=== PATIENT | male | born 1980 | race Caucasian/White ===

== ENCOUNTER 2016-06-19 13:09 | Inpatient (IN) | payer OTHER ==
[2016-06-19 15:43] VITALS: BMI 21.6
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
[2016-06-19] MEDS ORDERED: MENTHOL/PHENOL 1 EACH UD MM PRN (19:29)
[2016-06-19] MEDS ORDERED: chlordiazePOXIDE HCL 25 MG CAPSULE PO PRN (19:29)
[2016-06-19] MEDS ORDERED: diphenhydrAMINE HCL 50 MG CAPSULE PO PRN (19:29)
[2016-06-19] MEDS ORDERED: guaiFENesin/D-METHORPHAN HB 10 ML UNIT-DOSE CUPS PO PRN (19:29)
[2016-06-19] MEDS ORDERED: NICOTINE POLACRILEX 2 MG GUM BC PRN (19:29)
[2016-06-19] MEDS ORDERED: hydrOXYzine PAMOATE 50 MG CAPSULE (FP) PO PRN (19:29)
[2016-06-19] MEDS ORDERED: MAG HYDROX/AL HYDROX/SIMETH 30 ML UNIT-DOSE CUP PO PRN (19:29)
[2016-06-19] MEDS ORDERED: LOPERAMIDE HCL 2 MG CAPSULE PO PRN (19:29)
[2016-06-19] MEDS ORDERED: P-EPHED 60MG/TRIPROLIDI 2.5MG TABLET PO PRN (19:29)
[2016-06-19] MEDS ORDERED: ACETAMINOPHEN 325 MG TABLET (FP) PO PRN (19:29)
[2016-06-19] MEDS ORDERED: MAGNESIUM HYDROX 2400MG/30ML ORAL SUSPENSION 30 ML CUP PO PRN (19:29)
[2016-06-19] MEDS ORDERED: IBUPROFEN 400 MG TABLET (FP) PO PRN (19:29)
[2016-06-19] MEDS ORDERED: MAGNESIUM CITRATE 300 ML BOTTLE PO PRN (19:29)
[2016-06-19] MEDS: THIAMINE HCL 100 MG TABLET (FP) PO SCH (22:24)
[2016-06-19] MEDS: chlordiazePOXIDE HCL 25 MG CAPSULE PO SCH (22:24)
[2016-06-19 22:44] LABS: URINE APPEARANCE CLEAR; URINE BLOOD NEGATIVE (NEGATIVE); URINE COLOR AMBER; URINE GLUCOSE (UA) NEGATIVE (NEGATIVE); URINE KETONE NEGATIVE (NEGATIVE); URINE LEUK ESTERASE NEGATIVE (NEGATIVE); URINE NITRITE NEGATIVE (NEGATIVE); URINE UROBILINOGEN 4.0 E.U/dl E.U./dl (0.2-1.0)
[2016-06-19 22:49] LABS: URINE PROTEIN 2+ (NEGATIVE)
[2016-06-19 22:55] LABS: URINE MUCUS RARE; URINE RBC 4 /hpf (0-3); URINE WBC 1 /hpf (3-5)
[2016-06-20] MEDS: chlordiazePOXIDE HCL 25 MG CAPSULE PO SCH ×4 (05:42→22:13)
--- NOTE | 2016-06-20 09:54 | PN ---
S CIWA - CIWA Score Nausea/Vomitin Muscle Tremors: 3 Anxiety: 3 Agitation: 3 Paroxysmal Sweats: 1-Minimal Palms Moist Orientation: 0-Oriented Tacttile Disturbances: 1-Very Mild Itch/Numbness Auditory Disturbances: 1-Very Mild Visual Disturbances: 1-Very Mild Sensitivity Headache: 2-Mild CIWA-Ar Total Score: 18 BHS Progress Note (SOAP) Subjective: ALERT,IRRITABLE,ANXIOUS,INTERRUPTED SLEEP,TREMOR Objective: 06/20/16 09:52 Vital Signs Temperature 97.1 F L 06/20/16 09:46 Pulse Rate 103 H 06/20/16 09:46 Respiratory Rate 18 06/20/16 09:46 Blood Pressure 141/83 06/20/16 09:46 O2 Sat by Pulse Oximetry (%) 06/20/16 09:52 EKG SINUS TACHYCARDIA 110/MIN Laboratory Last Values Urine Color Janice 06/19/16 21:09 Urine Appearance Clear 06/19/16 21:09 Urine pH 8.0 (5.0-8.0) D 06/19/16 21:09 Ur Specific [place] 1.023 (1.001-1.035) 06/19/16 21:09 Urine Protein 2+ (NEGATIVE) H 06/19/16 21:09 Urine Glucose (UA) Negative (NEGATIVE) 06/19/16 21:09 Urine Ketones Negative (NEGATIVE) 06/19/16 21:09 Urine Blood Negative (NEGATIVE) 06/19/16 21:09 Urine Nitrite Negative (NEGATIVE) 06/19/16 21:09 Urine Bilirubin 2.0 (NEGATIVE) 06/19/16 21:09 Urine Urobilinogen 4.0 e.u/dl E.U./dl (0.2-1.0) 06/19/16 21:09 Ur Leukocyte Esterase Negative (NEGATIVE) 06/19/16 21:09 Urine RBC 4 /hpf (0-3) 06/19/16 21:09 Urine WBC 1 /hpf (3-5) 06/19/16 21:09 Ur Epithelial Cells Rare /hpf (FEW) 06/19/16 21:09 Urine Mucus Rare 06/19/16 21:09 06/20/16 09:53 LABS PENDING Assessment: 06/20/16 09:53 06/20/16 09:53 WITHDRAWAL SYMPTOM Plan: CONTINUE DETOX
[2016-06-20] MEDS: PRENATAL VITAMINS W/ FOLIC ACID TABLET (FP) PO SCH (10:17)
[2016-06-20] MEDS: NICOTINE 14 MG/24 HOURS TOPICAL PATCH TD SCH (10:18)
[2016-06-20 10:42] LABS: MCH 33.2 pg (25.7-33.7); MCHC 34.4 g/dl (32.0-35.9); MEAN CELL VOLUME 96.7 fl (80-96); MEAN PLT VOLUME 8.1 fl (7.5-11.1); PLATELET COUNT 207 K/MM3 (134-434); RDW 13.4 % (11.9-15.9); WHITE BLOOD COUNT 5.6 K/mm3 (4.0-10.0)
[2016-06-20 10:47] LABS: ALBUMIN 3.9 g/dl (3.4-5.0); ANION GAP 10 (8-16); BILIRUBIN,TOTAL 1.3 mg/dL (0.2-1.0); CALCIUM 8.8 mg/dL (8.5-10.1); CO2 30 mmol/L (21-32); GLUCOSE,RANDOM 78 mg/dL (74-106); SGOT/AST 54 U/L (15-37); SGPT/ALT 28 U/L (12-78)
[2016-06-20 10:48] LABS: ALK PHOS 110 U/L (45-117); CREATININE 0.7 mg/dL (0.7-1.3); TOT PROT 7.2 g/dl (6.4-8.2)
--- NOTE | 2016-06-20 18:28 | EKG ---
Test Reason : Blood Pressure : / mmHG Vent. Rate : 110 BPM Atrial Rate : 110 BPM P-R Int : 192 ms QRS Dur : 068 ms QT Int : 332 ms P-R-T Axes : 028 070 070 degrees QTc Int : 449 ms SINUS TACHYCARDIA OTHERWISE NORMAL ECG NO PREVIOUS ECGS AVAILABLE Confirmed by TRACE BEAVERS MD ([id number]) on 06/20/2016 6:28:14 PM Referred By: Confirmed By:TRACE BEAVERS MD
[2016-06-20] MEDS: THIAMINE HCL 100 MG TABLET (FP) PO SCH (22:13)
[2016-06-21] MEDS: chlordiazePOXIDE HCL 25 MG CAPSULE PO SCH ×3 (07:20→17:33)
[2016-06-21] MEDS: PRENATAL VITAMINS W/ FOLIC ACID TABLET (FP) PO SCH (11:10)
[2016-06-21] MEDS: NICOTINE 14 MG/24 HOURS TOPICAL PATCH TD SCH (11:11)
--- NOTE | 2016-06-21 13:19 | PN ---
S CIWA - CIWA Score Nausea/Vomitin Muscle Tremors: 4-Moderate,w/Arms Extend Anxiety: 4-Mod. Anxious/Guarded Agitation: 2 Paroxysmal Sweats: No Perspiration Orientation: 0-Oriented Tacttile Disturbances: 1-Very Mild Itch/Numbness Auditory Disturbances: 0-None Visual Disturbances: 0-None Headache: 2-Mild CIWA-Ar Total Score: 16 BHS Progress Note (SOAP) Subjective: Anxious, tremor, sweating, interrupted sleep, nausea Objective: 06/21/16 13:15 Last Vital Signs Temp Pulse Resp BP Pulse Ox 97.7 F 94 H 16 123/82 06/21/16 10:00 06/21/16 10:00 06/21/16 10:00 06/21/16 10:00 Laboratory Tests 06/19/16 06/20/16 06/20/16 21:09 08:00 08:00 WBC 5.6 RBC 4.32 Hgb 14.4 D Hct 41.8 MCV 96.7 H MCHC 34.4 RDW 13.4 Plt Count 207 D MPV 8.1 Sodium 140 Potassium 3.5 Chloride 100 Carbon Dioxide 30 Anion Gap 10 BUN 5 L Creatinine 0.7 Creat Clearance w eGFR > 60 Random Glucose 78 Calcium 8.8 Total Bilirubin 1.3 H D AST 54 H D ALT 28 Alkaline Phosphatase 110 D Total Protein 7.2 Albumin 3.9 Urine Color Janice Urine Appearance Clear Urine pH 8.0 D Ur Specific [place] 1.023 Urine Protein 2+ H Urine Glucose (UA) Negative Urine Ketones Negative Urine Blood Negative Urine Nitrite Negative Urine Bilirubin 2.0 Urine Urobilinogen 4.0 e.u/dl Ur Leukocyte Esterase Negative Urine RBC 4 Urine WBC 1 Ur Epithelial Cells Rare Urine Mucus Rare RPR Titer 06/20/16 08:00 WBC RBC Hgb Hct MCV MCHC RDW Plt Count MPV Sodium Potassium Chloride Carbon Dioxide Anion Gap BUN Creatinine Creat Clearance w eGFR Random Glucose Calcium Total Bilirubin AST ALT Alkaline Phosphatase Total Protein Albumin Urine Color Urine Appearance Urine pH Ur Specific [place] Urine Protein Urine Glucose (UA) Urine Ketones Urine Blood Urine Nitrite Urine Bilirubin Urine Urobilinogen Ur Leukocyte Esterase Urine RBC Urine WBC Ur Epithelial Cells Urine Mucus RPR Titer Nonreactive Labs noted: UA with 2+ protein and RBC of 4 Assessment: 06/21/16 13:17 Withdrawal symptoms Noted with proteinuria and microscopic hematuria Plan: Continue detox Proteinuria and microscopic hematuria: encouraged to drink lots of water, repeat UA
[2016-06-21] MEDS: chlordiazePOXIDE 5 MG CAPSULE PO SCH (22:05)
[2016-06-21] MEDS: THIAMINE HCL 100 MG TABLET (FP) PO SCH (22:06)
[2016-06-22] MEDS: chlordiazePOXIDE 5 MG CAPSULE PO SCH ×3 (05:27→17:50)
[2016-06-22 09:53] LABS: URINE APPEARANCE CLOUDY; URINE BILIRUBIN NEGATIVE (NEGATIVE); URINE BLOOD NEGATIVE (NEGATIVE); URINE COLOR YELLOW; URINE GLUCOSE (UA) NEGATIVE (NEGATIVE); URINE KETONE NEGATIVE (NEGATIVE); URINE LEUK ESTERASE NEGATIVE (NEGATIVE); URINE NITRITE NEGATIVE (NEGATIVE); URINE UROBILINOGEN 4.0 E.U/dl E.U./dl (0.2-1.0)
--- NOTE | 2016-06-22 10:31 | PN ---
BHS Progress Note (SOAP) Subjective: interrupted sleep, rt drop foot with splint need transportation Objective: 06/22/16 10:31 Vital Signs Temperature 98.2 F 06/22/16 06:00 Pulse Rate 78 06/22/16 06:00 Respiratory Rate 16 06/22/16 06:00 Blood Pressure 106/67 06/22/16 06:00 O2 Sat by Pulse Oximetry (%) Laboratory Tests 06/19/16 06/20/16 06/20/16 21:09 08:00 08:00 WBC 5.6 RBC 4.32 Hgb 14.4 D Hct 41.8 MCV 96.7 H MCHC 34.4 RDW 13.4 Plt Count 207 D MPV 8.1 Sodium 140 Potassium 3.5 Chloride 100 Carbon Dioxide 30 Anion Gap 10 BUN 5 L Creatinine 0.7 Creat Clearance w eGFR > 60 Random Glucose 78 Calcium 8.8 Total Bilirubin 1.3 H D AST 54 H D ALT 28 Alkaline Phosphatase 110 D Total Protein 7.2 Albumin 3.9 Urine Color Janice Urine Appearance Clear Urine pH 8.0 D Ur Specific [place] 1.023 Urine Protein 2+ H Urine Glucose (UA) Negative Urine Ketones Negative Urine Blood Negative Urine Nitrite Negative Urine Bilirubin 2.0 Urine Urobilinogen 4.0 e.u/dl Ur Leukocyte Esterase Negative Urine RBC 4 Urine WBC 1 Ur Epithelial Cells Rare Urine Mucus Rare RPR Titer 06/20/16 08:00 WBC RBC Hgb Hct MCV MCHC RDW Plt Count MPV Sodium Potassium Chloride Carbon Dioxide Anion Gap BUN Creatinine Creat Clearance w eGFR Random Glucose Calcium Total Bilirubin AST ALT Alkaline Phosphatase Total Protein Albumin Urine Color Urine Appearance Urine pH Ur Specific [place] Urine Protein Urine Glucose (UA) Urine Ketones Urine Blood Urine Nitrite Urine Bilirubin Urine Urobilinogen Ur Leukocyte Esterase Urine RBC Urine WBC Ur Epithelial Cells Urine Mucus RPR Titer Nonreactive pt 06/22/16 11:19 pt aox3 in nad ambulates with limb on rt Assessment: 06/22/16 10:31 withdrawal sx's 06/22/16 11:19 rt drop foot Plan: cont. detox increase fluids d/c in am
[2016-06-22 10:55] LABS: URINE PROTEIN 1+ (NEGATIVE)
[2016-06-22] MEDS: NICOTINE 14 MG/24 HOURS TOPICAL PATCH TD SCH (10:58)
[2016-06-22] MEDS: PRENATAL VITAMINS W/ FOLIC ACID TABLET (FP) PO SCH (10:58)
[2016-06-22 11:03] LABS: CALCIUM OXALATE CRYSTALS FEW /hpf (NONE SEEN); URINE BACTERIA RARE /hpf (NONE SEEN); URINE MUCUS RARE; URINE WBC 6 /hpf (3-5)
[2016-06-22] MEDS: chlordiazePOXIDE HCL 10 MG CAPSULE PO SCH (22:45)
[2016-06-22] MEDS: THIAMINE HCL 100 MG TABLET (FP) PO SCH (22:45)
[2016-06-23] MEDS: chlordiazePOXIDE HCL 10 MG CAPSULE PO SCH (05:32)
--- NOTE | 2016-06-23 09:01 | DS ---
[facility] Detox Discharge Summary Admission Date: 06/19/16 Discharge Date: 06/23/16 - History Present History: Alcohol Dependence - Physical Exam Results Vital Signs: Vital Signs Temperature 97.5 F L 06/23/16 05:59 Pulse Rate 73 06/23/16 05:59 Respiratory Rate 18 06/23/16 05:59 Blood Pressure 93/67 06/23/16 05:59 O2 Sat by Pulse Oximetry (%) - Treatment Hospital Course: Detox Protocol Followed, Detoxed Safely, Responded well, Discharged Condition Good, Rehab Referral Accepted - Medication Discharge Medications: Ambulatory Orders NK [No Known Home Medication] 06/10/15 - Diagnosis (1) Alcohol dependence with uncomplicated withdrawal Current Visit: Yes Status: Chronic (2) Nicotine dependence Current Visit: Yes Status: Chronic Qualifiers: Nicotine product type: cigarettes Substance use status: in withdrawal Qualified Code(s): F17.213 - Nicotine dependence, cigarettes, with withdrawal (3) Weight loss Current Visit: Yes Status: Acute (4) Status post lumbar spine operation Current Visit: Yes Status: Resolved (5) Alcohol-induced anxiety disorder Current Visit: No Status: Acute (6) Alcohol-induced sleep disorder Current Visit: No Status: Acute (7) Spinal cord injury Current Visit: No Status: Chronic - AMA Did Patient Leave Against Medical Advice: No
[2016-06-23 10:01] VITALS: BP 122/84; PULSE 78; TEMP 97.7
== END 2016-06-23 09:47 | disposition home or self-care (01) | DRG 775 ==
LOC: YASAS 13:09 → Y6N 18:29
PROVIDERS: ADMIT Internal Medicine; ATTEND Internal Medicine
PROC: HZ2ZZZZ Detoxification Services for Substance Abuse Treatment (ICD-10-PCS; principal; 2016-06-23)
DX: F10.230 Alcohol dependence with withdrawal, uncomplicated (principal); F17.213 Nicotine dependence, cigarettes, with withdrawal; F10.24 Alcohol dependence with alcohol-induced mood disorder; F10.282 Alcohol dependence with alcohol-induced sleep disorder; R63.4 Abnormal weight loss; Z68.21 Body mass index [BMI] 21.0-21.9, adult; M21.371 Foot drop, right foot; Z98.890 Other specified postprocedural states
CPT/HCPCS: 36415; 80053; 81003; 81015; 85027; 86593; 93005; 93010

== ENCOUNTER 2022-04-24 19:37 | Inpatient (IN) | payer OTHER ==
[2022-04-24 20:19] VITALS: BMI 21.4
[2022-04-24] MEDS ORDERED: NICOTINE POLACRILEX 2 MG GUM BUC PRN (21:26)
[2022-04-24] MEDS ORDERED: MAG HYDROX/AL HYDROX/SIMETH 30 ML UNIT-DOSE CUP PO PRN (21:26)
[2022-04-24] MEDS ORDERED: BENZOCAINE/MENTHOL (CHLORASEPTIC ) LOZENGE MM PRN (21:26)
[2022-04-24] MEDS ORDERED: NALOXONE HCL (KLOXXADO) 8 MG SPRAY NS PRN (21:26)
[2022-04-24] MEDS ORDERED: IBUPROFEN 400 MG TABLET (FP) PO PRN (21:26)
[2022-04-24] MEDS ORDERED: IBUPROFEN 600 MG TABLET (FP) PO PRN (21:26)
[2022-04-24] MEDS ORDERED: chlordiazePOXIDE HCL 25 MG CAPSULE PO PRN (21:26)
[2022-04-24] MEDS ORDERED: ONDANSETRON *ODT* 4 MG TABLET SL PRN (21:26)
[2022-04-24] MEDS ORDERED: ACETAMINOPHEN 325 MG TABLET (FP) PO PRN ×2 (21:26)
[2022-04-24] MEDS ORDERED: BISMUTH SUBSALICYLATE 524 MG/30 ML PO PRN (21:26)
[2022-04-24] MEDS ORDERED: DICYCLOMINE HCL 10 MG CAPSULE PO PRN (21:26)
[2022-04-24] MEDS ORDERED: MAGNESIUM HYDROX 2400MG/30ML ORAL SUSPENSION 30 ML CUP PO PRN (21:26)
[2022-04-24] MEDS ORDERED: LOPERAMIDE HCL 2 MG CAPSULE PO PRN (21:26)
[2022-04-24] MEDS ORDERED: POLYETHYLENE GLYCOL (HEALTHYLAX) 3350 17 GM PACKET PO PRN (21:26)
[2022-04-24] MEDS: MELATONIN 5 MG TABLETS PO SCH (23:22)
[2022-04-24] MEDS: THIAMINE HCL 100 MG TABLET (FP) PO SCH (23:22)
[2022-04-24] MEDS: chlordiazePOXIDE HCL 25 MG CAPSULE PO SCH (23:23)
[2022-04-25] MEDS: chlordiazePOXIDE HCL 25 MG CAPSULE PO SCH ×4 (05:53→22:05)
[2022-04-25] MEDS: PRENATAL VITAMINS W/ FOLIC ACID TABLET (FP) PO SCH (10:14)
[2022-04-25] MEDS: NICOTINE 14 MG/24 HOURS TOPICAL PATCH TD SCH (10:14)
[2022-04-25 11:05] LABS: HEMATOCRIT 32.8 % (35.4-49); HEMOGLOBIN 10.9 GM/dL (11.7-16.9); MCH 33.9 pg (25.7-33.7); MCHC 33.3 g/dl (32.0-35.9); MEAN CELL VOLUME 101.6 fl (80-96); MEAN PLT VOLUME 7.1 fl (7.5-11.1); PLATELET COUNT 367 10^3/uL (134-434); RBC 3.23 M/mm3 (4.00-5.60); RDW 13.3 % (11.9-15.9); WHITE BLOOD COUNT 3.9 K/mm3 (4.0-10.0)
[2022-04-25 11:16] LABS: ALBUMIN 3.6 g/dl (3.4-5.0); BLOOD UREA NITROGEN 7.4 mg/dL (7-18); CALCIUM 8.9 mg/dL (8.5-10.1)
[2022-04-25 11:19] LABS: CREATININE 0.7 mg/dL (0.55-1.3)
[2022-04-25 11:21] LABS: BILIRUBIN,TOTAL 0.3 mg/dL (0.2-1); TOT PROT 6.6 g/dl (6.4-8.2)
[2022-04-25] MEDS: METHOCARBAMOL 500 MG TABLET PO PRN (22:05)
[2022-04-25] MEDS: THIAMINE HCL 100 MG TABLET (FP) PO SCH (22:05)
[2022-04-25] MEDS: MELATONIN 5 MG TABLETS PO SCH (22:05)
[2022-04-26] MEDS: chlordiazePOXIDE HCL 25 MG CAPSULE PO SCH ×4 (05:44→22:21)
[2022-04-26] MEDS: PRENATAL VITAMINS W/ FOLIC ACID TABLET (FP) PO SCH (10:31)
[2022-04-26] MEDS: NICOTINE 14 MG/24 HOURS TOPICAL PATCH TD SCH (10:31)
[2022-04-26] MEDS: THIAMINE HCL 100 MG TABLET (FP) PO SCH (22:20)
[2022-04-26] MEDS: MELATONIN 5 MG TABLETS PO SCH (22:20)
[2022-04-26] MEDS: METHOCARBAMOL 500 MG TABLET PO PRN (22:20)
[2022-04-27] MEDS ORDERED: chlordiazePOXIDE HCL 10 MG CAPSULE PO PRN
[2022-04-27] MEDS: chlordiazePOXIDE HCL 10 MG CAPSULE PO SCH ×4 (06:00→22:40)
[2022-04-27] MEDS: PRENATAL VITAMINS W/ FOLIC ACID TABLET (FP) PO SCH (10:16)
[2022-04-27] MEDS: NICOTINE 14 MG/24 HOURS TOPICAL PATCH TD SCH (10:16)
[2022-04-27] MEDS ORDERED: SILVER SULFADIAZINE 1% TOP CREAM 50 GM JAR TP SCH ×2 (13:00)
[2022-04-27 21:05] VITALS: RESP 18
[2022-04-27] MEDS: MELATONIN 5 MG TABLETS PO SCH (22:37)
[2022-04-27] MEDS: THIAMINE HCL 100 MG TABLET (FP) PO SCH (22:38)
[2022-04-27] MEDS: METHOCARBAMOL 500 MG TABLET PO PRN (22:38)
[2022-04-28] MEDS ORDERED: chlordiazePOXIDE HCL 10 MG CAPSULE PO SCH (05:00)
[2022-04-28 09:03] VITALS: BP 122/77; PULSE 98; TEMP 96.7
[2022-04-29] MEDS ORDERED: chlordiazePOXIDE HCL 10 MG CAPSULE PO ONE (05:00)
== END 2022-04-28 09:25 | disposition home or self-care (01) | DRG 775 ==
LOC: YASAS 19:37 → Y3N 21:58
PROVIDERS: ADMIT Allergy & Immunology; ATTEND Family Medicine
PROC: HZ2ZZZZ Detoxification Services for Substance Abuse Treatment (ICD-10-PCS; principal; 2022-04-24)
DX: F10.230 Alcohol dependence with withdrawal, uncomplicated (principal); F17.210 Nicotine dependence, cigarettes, uncomplicated; M21.371 Foot drop, right foot; Z99.89 Dependence on other enabling machines and devices
CPT/HCPCS: 36415; 80053; 85027; 86780; 93005; 93010; C9803-CS; U0003; U0005